=== PATIENT | male | born 1970 ===

== ENCOUNTER 2023-01-24 14:48 | Emergency (ER) | payer OTHER, BC, SELFPAY ==
[2023-01-24 15:06] VITALS: BP 116/84; PULSE 88; RESP 16; TEMP 36.8; O2SAT 95
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
[2023-01-24 15:40] VITALS: PULSE 88; O2SAT 95
[2023-01-24 15:45] VITALS: PULSE 83; O2SAT 96
[2023-01-24 15:47] VITALS: BP 136/78; PULSE 84; O2SAT 95
== END 2023-01-24 17:56 | disposition home or self-care (01) ==
PROVIDERS: Emergency Provider Emergency Medicine Emergency Medical Services
DX: S62.307B Unspecified fracture of fifth metacarpal bone, left hand, initial encounter for open fracture (principal); V49.3XXA Car occupant (driver) (passenger) injured in unspecified nontraffic accident, initial encounter
CPT/HCPCS: 12001; 73130; 99284; 99291

== ENCOUNTER 2023-01-28 06:51 | Day surgery (SDC) | payer OTHER, BC, SELFPAY ==
[2023-01-28] VITALS (9 sets, daily range): BP systolic 119–138; BP diastolic 66–97; PULSE 69–77; RESP 16; TEMP 36.4–36.6; O2SAT 92–97; BMI 30.2
[2023-01-28] MEDS: SODIUM CHLORIDE 0.9 % (FLUSH) 10 ML SYRINGE IVF (07:25)
[2023-01-28] MEDS: LACTATED RINGERS 1000 ML 1,000 ML 100 ML IV ×2 (07:25→08:05)
[2023-01-28] MEDS: fentaNYL 100 MCG/2 ML inj IVP (07:31)
[2023-01-28] MEDS: MIDAZOLAM HCL 1 MG/ML inj IVP (07:31)
--- NOTE | 2023-01-28 07:42 | P.NB_ITS ---
Nerve Block Nerve Block Time Seen by Provider: 07:37 Date Seen: 01/28/23 Type of block requested by surgeon for post-operative analgesia: axillary Side: left Time out performed: Yes Verification of patient name: Yes Verification of date of : Yes Site marking: site marked Name of person performing procedure: Ash Continuous monitoring Was continuous monitoring of O2 sat, B/P, quality assurance monitor body, recorded every 15 minutes?: Yes Procedure Checklist: sterile prep, needles and gloves Ultrasound guided. Images saved: Yes Medications given in 5ml increments after negative aspiration: Ropivicaine %: 0.5 mL: 30 Needle gauge: 22 Decadron (mg): 10 Patient tolerated procedure well: Yes Additional comments: Needle noted adjacent to nerve Block Charges Block Charge (with Pro Fee): Brachial Plexus Use of Ultrasound Machine for Block: Yes- US Guidance/pain block
--- NOTE | 2023-01-28 07:45 | SUR.PREOP ---
TIME?OUT:?5767 PT/Kal LANDRY RN/Anastacia WALDROP MDA?VERIFICATION?OF?SURGICAL?SITE,?PROCEDURE,?AND?CONSENT OBTAINED?PRIOR?TO?INVASIVE?PROCEDURE.
--- NOTE | 2023-01-28 07:45 | W.ANESCHARGE ---
Anesthesia Charges Start Date/Time Anesthesia Start Date: 01/28/23 Anesthesia Start Time: 07:56 Stop Date/Time Anesthesia Stop Date: 01/28/23 Anesthesia Stop Time: 10:10
[2023-01-28] MEDS: CEFAZOLIN 2 GM INJ IVP (08:05)
--- NOTE | 2023-01-28 08:15 | CRLHL7_ITS ---
For Patients: As a result of the Cures Act, medical imaging exams and procedure reports are released immediately into your electronic medical record. You may view this report before your referring provider. If you have questions, please contact your health care provider. Indication: ORIF Left 5th Metacarpal Technique: Three fluoroscopic images of the left hand. Fluoroscopic time 11.4 seconds. IMPRESSION: Fluoroscopic guidance for open reduction internal fixation 5th metacarpal fracture. Dictated by Edilson Garcia MD @ 01/28/2023 9:45:51 AM (Electronically Signed)
--- NOTE | 2023-01-28 08:30 | W.ANESCHARGE ---
Anesthesia Charges Start Date/Time Anesthesia Start Date: 01/28/23 Anesthesia Start Time: 07:56 Stop Date/Time Anesthesia Stop Date: 01/28/23 Anesthesia Stop Time: 10:10
--- NOTE | 2023-01-28 09:39 | W.PM.H&PU ---
History & Physical Update History & Physical Update H&P Reviewed and patient assessed: No changes noted
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
== END 2023-01-28 11:32 | disposition home or self-care (01) ==
PROVIDERS: Visit Provider Orthopaedic Surgery
PROC: (CPT 26615; principal; 2023-01-28 08:15)
DX: S62.397A Other fracture of fifth metacarpal bone, left hand, initial encounter for closed fracture (principal); G89.18 Other acute postprocedural pain; E11.9 Type 2 diabetes mellitus without complications; Z79.4 Long term (current) use of insulin
CPT/HCPCS: 26615; 01810; 01830; 64415; 73130; 76000; 76942; 82962; A4580; C1713; J0690; J2250; J2704; J3010; J3490; J7120

== ENCOUNTER 2023-03-22 13:30 | Outpatient (RCR) | payer BC, SELFPAY | END 2023-07-20 23:59 | disposition home or self-care (01) | PROVIDERS: Visit Provider Orthopaedic Surgery | DX: S62.307A Unspecified fracture of fifth metacarpal bone, left hand, initial encounter for closed fracture (principal); Z98.890 Other specified postprocedural states; R53.1 Weakness; Z74.09 Other reduced mobility; Z51.89 Encounter for other specified aftercare | CPT/HCPCS: 97110; 97140; 97165; 97530; L3808; X5282 ==